=== PATIENT | female | born 1935 | race Caucasian/White ===

== ENCOUNTER 2016-07-10 18:46 | Emergency (ER) | payer MEDICARE, BC ==
[~2016-07-10] VITALS: Ht 149.9 cm; Wt 45.4 kg
[~2016-07-10 18:46] MED LIST: CLONIDINE HCL0.1 M1 PO; DIGOXIN0.25 M1 PO; FLEXERIL10 MG PO; HUMALOG100 U/M1 SC; INSULIN GL100 UNITS1 SC; LISINOPRIL20 MG PO; MONTELUKAST SODI5 MG PO
[2016-07-10 19:19] LABS: STREP SCREEN (RAPID) NEGATIVE
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
[2016-07-10 20:09] LABS: HEMOGLOBIN 15.1 g/dL (12.2-16.2); LYMPH # 0.5 K/mm3 (0.7-4.5)
[2016-07-10 20:57] LABS: URINE BLOOD TRACE-LYSED (NEG)
[2016-07-10 21:04] LABS: URINE BILIRUBIN - DIPSTICK NEGATIVE (NEG)
[2016-07-10 22:17] LABS: NEUTROPHILS 96 % (42-76)
[2016-07-10 22:55] VITALS: BP 144/68
--- NOTE | 2016-07-11 07:49 | RADIOLOGY REPORT PS360 ---
CHEST(2 VIEWS-NOT PORTABLE) COMPARISON: None HISTORY: Cough, generalized weakness TECHNIQUE: PA and lateral chest FINDINGS: Mild emphysematous changes seen with mild hyperexpansion lung reese. I see no infiltrate. The cardiac silhouette and vascularity are normal and there is no pleural fluid. There are multiple surgical clips at the gastroesophageal junction. IMPRESSION: Borderline COPD, no acute chest pathology noted
== END 2016-07-10 22:56 | disposition home or self-care (01) ==
LOC: ER 18:46
PROVIDERS: Emergency Medicine
DX: K52.9 Noninfective gastroenteritis and colitis, unspecified (principal); E11.65 Type 2 diabetes mellitus with hyperglycemia; Z79.4 Long term (current) use of insulin; I10 Essential (primary) hypertension